=== PATIENT | female | born 1990 | race Caucasian/White ===

== ENCOUNTER 2017-12-14 18:11 | Emergency (ER) | payer OTHER ==
[2017-12-14 18:22] VITALS: BP 146/66
--- NOTE | 2017-12-14 19:57 | ED ---
Lower Extremity - HPI Summary HPI Summary: Complains of redness, swelling, tenderness to left lateral ankle 3 days. Denies trauma, fever, N/V, purulent drainage, CP, SOB, loss of sensation or function distally and low left lower extremity. Patient went to urgent care and was sent to ED for evaluation of possible blood clot. Denies history of blood clots, family history of blood clots, recent surgery or trauma, CP, SOB, cough, estrogen supplements. - History of Current Complaint Chief Complaint: EDExtremityLower Stated Complaint: SKIN ISSUE(ANKLE) Time Seen by Provider: 12/14/17 19:22 Hx Obtained From: Patient Mechanism Of Injury: Unknown Onset/Duration: Days Severity Initially: Mild Severity Currently: Mild Pain Intensity: 0 Pain Scale Used: 0-10 Numeric Timing: Intermittent Location: Is Discrete @ Associated Signs And Symptoms: Positive: Swelling, Redness - Allergies/Home Medications Allergies/Adverse Reactions: Allergies Allergy/AdvReac Type Severity Reaction Status Date / Time Penicillins Allergy Hives Verified 12/14/17 18:22 Home Medications: Home Medications NK [No Home Medications Reported] 12/14/17 [History Confirmed 12/14/17] PMH/Surg Hx/FS Hx/Imm Hx Infectious Disease History: No Infectious Disease History: Denies: Traveled Outside the [place] in Last 30 Days Review of Systems Constitutional: Negative Eyes: Negative ENT: Negative Cardiovascular: Negative Respiratory: Negative Gastrointestinal: Negative Genitourinary: Negative Musculoskeletal: Negative Skin: Other Neurological: Negative Psychological: Normal All Other Systems Reviewed And Are Negative: Yes Physical Exam - Summary Physical Exam Summary: 4 cm x 4 cm area of ecchymosis with no fluctuance or apparent purulent drainage. Tender to palpation. Mild localized non-circumferential erythema and swelling to left lateral ankle. Full range of motion of left ankle. PMS intact distally. Triage Information Reviewed: Yes Vital Signs On Initial Exam: Initial Vitals Temp Pulse Resp BP Pulse Ox 98.1 F 90 16 146/66 100 12/14/17 18:19 12/14/17 18:19 12/14/17 18:19 12/14/17 18:19 12/14/17 18:19 Vital Signs Reviewed: Yes Appearance: Positive: Well-Appearing Skin: Positive: Warm Head/Face: Positive: Normal Head/Face Inspection Eyes: Positive: Normal Neck: Positive: Supple Respiratory/Lung Sounds: Positive: Clear to Auscultation Cardiovascular: Positive: Normal Abdomen Description: Positive: Nontender Musculoskeletal: Positive: Normal Neurological: Positive: Normal Psychiatric: Positive: Normal AVPU Assessment: Alert - Titus Coma Scale Best Eye Response: 4 - Spontaneous Best Motor Response: 6 - Obeys Commands Best Verbal Response: 5 - Oriented Coma Scale Total: 15 Diagnostics - Vital Signs Vital Signs Temp Pulse Resp BP Pulse Ox 12/14/17 18:19 98.1 F 90 16 146/66 100 - Laboratory Lab Statement: Any lab studies that have been ordered have been reviewed, and results considered in the medical decision making process. - Ultrasound No standard instances Ultrasound Interpretation: No Acute Changes Ultrasound Interpretation Completed By: Radiologist Lower Extremity Course/Dx - Course Course Of Treatment: Complains of redness, swelling, tenderness to left lateral ankle 3 days. Denies trauma, fever, N/V, purulent drainage, CP, SOB, loss of sensation or function distally and low left lower extremity. Patient went to urgent care and was sent to ED for evaluation of possible blood clot. Denies history of blood clots, family history of blood clots, recent surgery or trauma , CP, SOB, cough, estrogen supplements. cm x 4 cm area of ecchymosis with no fluctuance or apparent purulent drainage. Tender to palpation. Mild localized non-circumferential erythema and swelling to left lateral ankle. Full range of motion of left ankle. PMS intact distally. Ultrasound negative for DVT. Vital signs within normal limits and stable. Started on Keflex here in the ED for cellulitis area Rx for same. - Diagnoses Provider Diagnoses: Cellulitis Discharge - Sign-Out/Discharge Documenting (check all that apply): Discharge/Admit/Transfer - Discharge Plan Condition: Stable Disposition: HOME Patient Education Materials: Cellulitis (ED) Referrals: Erin Dallas MD [Primary Care Provider] - Additional Instructions: Take antibiotics as directed. Follow-up with primary care. Return to the ED for any new or worsening symptoms - Billing Disposition and Condition Condition: STABLE Disposition: Home
--- NOTE | 2017-12-14 20:36 | RAD ---
Indication: Left leg edema. Duplex Doppler sonography of the deep venous system of the left lower extremity deep venous system was performed. Bilaterally the common femoral veins appear patent and compressible. Left proximal greater saphenous vein, proximal deep femoral vein, femoral vein, popliteal vein, posterior tibial veins and peroneal veins appear patent and compressible. IMPRESSION: NO EVIDENCE OF DEEP VENOUS THROMBOSIS IS IDENTIFIED.
[2017-12-14] MEDS ORDERED: Cephalexin CAP* 500 MG PO ONE (21:04)
[2017-12-14] MEDS ORDERED: Sulfamethox/Trimethoprim DS 800/160* TAB PO ONE (21:05)
== END 2017-12-14 21:40 | disposition home or self-care (01) ==
LOC: ED 18:11
DX: L03.116 Cellulitis of left lower limb (principal); Z88.0 Allergy status to penicillin
CPT/HCPCS: 99282; A9270-GY